=== PATIENT | female | born 1985 | race Caucasian/White ===

== ENCOUNTER 2018-12-13 18:18 | Emergency (ER) | payer OTHER ==
[2018-12-13 18:32] VITALS: BP 138/90; PULSE 90; TEMP 99; BMI 35.7
--- NOTE | 2018-12-13 18:33 | PDOC ---
Rapid Medical Evaluation Chief Complaint: Injury Medical Evaluation: Allergies Allergy/AdvReac Type Severity Reaction Status Date / Time Penicillins AdvReac Verified 12/13/18 18:29 12/13/18 18:31 I have performed a brief in-person evaluation of this patient. The patient presents with a chief complaint of:right index finger Pertinent physical exam findings: swelling and pain to finger- non fluctuant I have ordered the following: nothing The patient will proceed to the ED for further evaluation. Discharge Disposition - Diagnosis Finger pain, right - Referrals - Patient Instructions - Post Discharge Activity
--- NOTE | 2018-12-13 19:36 | PDOC ---
History of Present Illness - General Chief Complaint: Injury Stated Complaint: SWOLLEN FINGER Time Seen by Provider: 12/13/18 19:15 History Source: Patient - History of Present Illness Initial Comments: 12/13/18 19:31 33-year-old female complaining of right index finger pain proximal to the right fingernail. Patient reports that she cut her nails really short pain started yesterday. Denies fevers/chills. Patient has a history of [id number] diabetes. Past History - Past Medical History Allergies/Adverse Reactions: Allergies Allergy/AdvReac Type Severity Reaction Status Date / Time Penicillins AdvReac Verified 12/13/18 18:29 Home Medications: Ambulatory Orders Clindamycin [Cleocin -] 300 mg PO Q6HPO #28 capsule 12/13/18 COPD: No Diabetes: Yes - Immunization History Immunization Up to Date: Yes - Suicide/Smoking/Psychosocial Hx Smoking History: Never smoked Have you smoked in the past 12 months: No Information on smoking cessation initiated: No Hx Alcohol Use: No Drug/Substance Use Hx: No Review of Systems - Review of Systems Able to Perform ROS?: Yes Is the patient limited Marshallese proficient: No Constitutional: No: Symptoms Reported, See HPI, Chills, Diaphoresis, Fever, Loss of Appetite, Malaise, Night Sweats, Weakness, Weight Stable, Unintentional Wgt. Loss, Unexplained wgt Loss, Other Integumentary: Yes: Other (finger pain) *Physical Exam - Vital Signs Last Vital Signs Temp Pulse Resp BP Pulse Ox 99.0 F 90 16 138/90 100 12/13/18 18:29 12/13/18 18:29 12/13/18 18:29 12/13/18 18:29 12/13/18 18:29 - Physical Exam General Appearance: Yes: Appropriately Dressed Extremity: positive: Other (right index finger erythema at the tip and swelling , no swelling no ROM. ) Integumentary: positive: Normal Color, Dry, Warm Neurologic: positive: Fully Oriented, Alert, Normal Mood/Affect Moderate Sedation - Procedure Monitoring Vital Signs: Procedure Monitoring Vital Signs Temperature 99.0 F 12/13/18 18:29 Pulse Rate 90 12/13/18 18:29 Respiratory Rate 16 12/13/18 18:29 Blood Pressure 138/90 12/13/18 18:29 O2 Sat by Pulse Oximetry (%) 100 02/07/19 18:29 Medical Decision Making - Medical Decision Making 12/13/18 19:36 finger cellulitis P: no abscess *DC/Admit/Observation/Transfer Diagnosis at time of Disposition: Finger pain, right, Paronychia of finger of right hand - Discharge Dispostion Disposition: HOME - Prescriptions Prescriptions: Clindamycin [Cleocin -] 300 mg PO Q6HPO #28 capsule - Referrals - Patient Instructions Printed Discharge Instructions: DI for Wound Infection Additional Instructions: soak your finger in warm salty water. take clindamycin as prescribed follow up with your doctor in 2 days for wound check, Additional Instructions: * Please call your personal physician to report your Emergency Department visit and to report your progress, if any. * If there is no improvement in symptoms in 2 days call your physician. * Return to the Emergency Department for any worsening symptoms. - Post Discharge Activity Forms/Work/School Notes: Back to Work
== END 2018-12-13 20:32 | disposition home or self-care (01) ==
LOC: JERFT 18:18
DX: L03.011 Cellulitis of right finger (principal)
CPT/HCPCS: 99281-25

== ENCOUNTER 2018-12-15 16:33 | Emergency (ER) | payer OTHER ==
[2018-12-15 16:41] VITALS: BP 134/77; PULSE 107; TEMP 97.7; BMI 35.7
--- NOTE | 2018-12-15 17:41 | PDOC ---
History of Present Illness - General Chief Complaint: Redness To Affected Area Stated Complaint: PAIN IN LEFT LEFT HAND AND FINGERS Time Seen by Provider: 12/15/18 17:21 - History of Present Illness Initial Comments: 12/15/18 17:38 33-year-old female presents for evaluation of ongoing right finger pain unrelieved with antibiotics. She has no systemic symptoms. Past History - Past Medical History Allergies/Adverse Reactions: Allergies Allergy/AdvReac Type Severity Reaction Status Date / Time Penicillins AdvReac Verified 12/15/18 16:41 Home Medications: Ambulatory Orders NK [No Known Home Medication] 12/15/18 COPD: No Diabetes: Yes - Immunization History Immunization Up to Date: Yes - Suicide/Smoking/Psychosocial Hx Smoking History: Never smoked Have you smoked in the past 12 months: No Hx Alcohol Use: No Drug/Substance Use Hx: No Review of Systems - Review of Systems Integumentary: Yes: See HPI *Physical Exam - Vital Signs Last Vital Signs Temp Pulse Resp BP Pulse Ox 97.7 F 107 H 20 134/77 99 12/15/18 16:38 12/15/18 16:38 12/15/18 16:38 12/15/18 16:38 12/15/18 16:38 - Physical Exam Comments: 12/15/18 17:38 There is a tender erythematous fluctuant area adjacent to the right index finger nail fold on the radial aspect of the finger. There are no gross sensorimotor deficits. Moderate Sedation - Procedure Monitoring Vital Signs: Procedure Monitoring Vital Signs Temperature 97.7 F 12/15/18 16:38 Pulse Rate 107 H 12/15/18 16:38 Respiratory Rate 20 12/15/18 16:38 Blood Pressure 134/77 12/15/18 16:38 O2 Sat by Pulse Oximetry (%) 99 12/15/18 16:38 Medical Decision Making - Medical Decision Making 12/15/18 17:38 Under aseptic technique a digital block was introduced into the right index finger. I used 6 mL of 1% lidocaine without epinephrine. After appropriate anesthesia the finger was sterilely prepped a small incision was made on the radial aspect of the right index finger adjacent to the nail fold. Material was expressed a dry sterile dressing was placed patient tolerated this well. *DC/Admit/Observation/Transfer Diagnosis at time of Disposition: Paronychia of finger of right hand, Abscess - Discharge Dispostion Disposition: HOME Condition at time of disposition: Stable Decision to Admit order: No - Referrals Referrals: Jensen Aguilar MD [Staff Physician] - - Patient Instructions Printed Discharge Instructions: DI for Incision and Drainage of a Skin Abscess , Paronychia, DI for Paronychia Additional Instructions: Continue to take the clindamycin as directed. Return to the emergency room should you have any further issues. Follow-up with hand surgery in 2-3 days for further evaluation and treatment options. Remove the dressing in 48 hours and leave the area open to air. May wash her hair at that point with soap and water if there is any drainage may cover with a dry sterile dressing or Band-Aid. Tylenol Motrin as directed for pain. - Post Discharge Activity
== END 2018-12-15 17:43 | disposition home or self-care (01) ==
LOC: JERFT 16:33
PROC: 0J9J0ZZ Drainage of Right Hand Subcutaneous Tissue and Fascia, Open Approach (ICD-10-PCS; principal; 2018-12-15)
DX: L03.011 Cellulitis of right finger (principal)
CPT/HCPCS: 99281-25

== ENCOUNTER 2019-12-08 02:00 | Emergency (ER) | payer SELFPAY ==
--- NOTE | 2019-12-08 02:41 | PDOC ---
History of Present Illness - General Chief Complaint: Ingrown toenail Stated Complaint: INGROWN NAIL Time Seen by Provider: 12/08/19 02:37 History Source: Patient - History of Present Illness Initial Comments: 12/08/19 03:37 34 y/o female with a PMHx of NIDDM here today for R finger pain. States the pain started three days previous and has gotten worse. No fevers/chills. No history of similar pain. Denies any high pressure injection or injury. Past History - Past Medical History Allergies/Adverse Reactions: Allergies Allergy/AdvReac Type Severity Reaction Status Date / Time Penicillins AdvReac Verified 12/08/19 02:06 Home Medications: Ambulatory Orders Acetaminophen [Tylenol] 650 mg PO PRN 12/08/19 Clindamycin [Cleocin -] 300 mg PO Q6HPO #28 capsule 12/08/19 Ibuprofen [Motrin -] 600 mg PO TID #21 tablet 12/08/19 COPD: No Diabetes: Yes - Immunization History Immunization Up to Date: Yes - Psycho Social/Smoking Cessation Hx Smoking History: Never smoked Have you smoked in the past 12 months: No Hx Alcohol Use: No Drug/Substance Use Hx: No Review of Systems - Review of Systems Constitutional: No: Chills, Fever HEENTM: No: Blurred Vision, Double Vision Respiratory: No: Cough, Shortness of Breath Cardiac (ROS): No: Chest Pain, Lightheadedness, Palpitations ABD/GI: No: Constipated, Diarrhea, Nausea, Vomiting *Physical Exam - Physical Exam 12/08/19 03:38 Triage VS reviewed R fifth digit w/palmar edema - c/w felon; 2+ DP pulse B/L CV: S1, S2 Respiratory: CLTA B/L Abdomen: soft, non-tender, (+) bowel sounds Neuro: A&O x3, CN II-XII intact Procedures - Incision and Drainage I&D Site: Right: Other Anesthesia: 2% Lidocaine Blade Size: 11 Medical Decision Making - Medical Decision Making 12/08/19 02:41 34 y/o female with R 5th digit felon. No h/o high pressure injury. I&D by me w/some purulent discharge on palmar side; repeat procedure by attending. Wound culture pending Patient given OTD of Clindamycin and discharged home with 7 day antibiotic course. Discharge - Discharge Information Problems reviewed: Yes Clinical Impression/Diagnosis: Finger pain, right Condition: Good Disposition: HOME - Admission No - Additional Discharge Information Prescriptions: Clindamycin [Cleocin -] 300 mg PO Q6HPO #28 capsule Ibuprofen [Motrin -] 600 mg PO TID #21 tablet - Follow up/Referral Referrals: Miles Sethi [Primary Care Provider] - - Patient Discharge Instructions Patient Printed Discharge Instructions: ARYAN Dorantes Additional Instructions: We have sent a prescription for an antibiotic to your pharmacy. Please complete the entire antibiotic course. You can take Tylenol (650 mg) alternating with Motrin (400 mg) every 6 hours for your pain. Return to the Emergency Department for any new/worsening/concerning symptoms. - Post Discharge Activity
[2019-12-08] MEDS ORDERED: LIDOCAINE HCL 2% (50ML VIAL) INF ONE (02:42)
[2019-12-08] MEDS ORDERED: LIDOCAINE HCL 2% (20ML MULTI-DOSE VIAL) ONE (02:43)
--- NOTE | 2019-12-08 03:04 | PDOC ---
Attending Attestation - Resident Resident Name: Simran Acevedo - ED Attending Attestation I have performed the following: I have examined & evaluated the patient, The case was reviewed & discussed with the resident, I agree w/resident's findings & plan - HPI HPI: 12/09/19 00:24 34 y/o female with a PMHx of NIDDM here today for R finger pain. States the pain started three days previous and has gotten worse. No fevers/chills. No history of similar pain. Denies any high pressure injection or injury. - Physicial Exam PE: 12/09/19 00:24 Normal exam Pt has a paronychia on her left 5th finger - Medical Decision Making 12/08/19 03:52 paronychia was drained; pus removed 0.3ml pt tolerated procedure well. Pt will be given clinda as she is allergic to PCN. She will follow with her PMD she understands to return for infection analgesics givem
[2019-12-08] MEDS ORDERED: CLINDAMYCIN HCL 300 MG CAPSULE PO ONE (03:16)
[2019-12-08] MEDS ORDERED: IBUPROFEN 600 MG TABLET (FP) PO ONE ×2 (03:17→03:31)
[2019-12-08] MEDS ORDERED: CLINDAMYCIN HCL 150 MG CAPSULE (FP) ONE (03:31)
== END 2019-12-08 03:47 | disposition home or self-care (01) ==
LOC: JER 02:00
PROC: 0J9J0ZZ Drainage of Right Hand Subcutaneous Tissue and Fascia, Open Approach (ICD-10-PCS; principal; 2019-12-08)
PROC: 3E013BZ Introduction of Anesthetic Agent into Subcutaneous Tissue, Percutaneous Approach (ICD-10-PCS; 2019-12-08)
DX: L03.011 Cellulitis of right finger (principal); Z88.0 Allergy status to penicillin
CPT/HCPCS: 87070; 87186; 87205; 99282-25

== ENCOUNTER 2020-01-09 00:41 | Emergency (ER) | payer SELFPAY ==
[2020-01-09 00:50] VITALS: BP 153/86; PULSE 98; TEMP 97.4; BMI 32.9
--- NOTE | 2020-01-09 01:39 | PDOC ---
History of Present Illness - General Chief Complaint: Ingrown toenail Stated Complaint: LEFT FINGER PAIN Time Seen by Provider: 01/09/20 01:38 - History of Present Illness Initial Comments: 01/09/20 01:38 34 yo F with h/o NIDDM who p/w left fifth digit pain at MCP. Patient reports one day of severe, worsening, pinky pain x 1 day. Pain aggravated with touch and movement of pinky. Denies trauma to digit. Recent paronychia drainage of involved digit (12/08/19). Reports visit to [facility] for diffuse hand swelling x 1-2 weeks ago. Patient states that she has been on Clindamycin TID daily, with 5 days left. Has missed doses of Clindamycin. Patient denies LOERA, vision change, palpitations, cough, wheezing, orthopena, PND , leg swelling/pain, N/V, F,C, CP, SOB, urinary complaints, hematuria, BPR, abdominal pain, diarrhea, constipation, lightheadedness, weakness, sensory changes. PMHx: as noted above ROS: as noted SHx: Denies Etoh, IVDA, tobacco use Allergies: PCN Past History - Past Medical History Allergies/Adverse Reactions: Allergies Allergy/AdvReac Type Severity Reaction Status Date / Time Penicillins AdvReac Verified 01/09/20 00:48 Home Medications: Ambulatory Orders Acetaminophen [Tylenol] 650 mg PO PRN 12/08/19 Clindamycin [Cleocin -] 300 mg PO Q6HPO #28 capsule 12/08/19 Ibuprofen [Motrin -] 600 mg PO TID #21 tablet 12/08/19 Ibuprofen [Motrin -] 600 mg PO TID #21 tablet 01/09/20 COPD: No Diabetes: Yes - Immunization History Immunization Up to Date: Yes - Psycho Social/Smoking Cessation Hx Smoking History: Current every day smoker Have you smoked in the past 12 months: No Number of Cigarettes Smoked Daily: 6 Information on smoking cessation initiated: Yes Hx Alcohol Use: No Drug/Substance Use Hx: No Review of Systems - Review of Systems Comments:: 01/09/20 01:39 GENERAL/CONSTITUTIONAL: No fever or chills. No weakness. HEAD, EYES, EARS, NOSE AND THROAT: No change in vision. No ear pain or discharge. No sore throat. CARDIOVASCULAR: No chest pain or shortness of breath RESPIRATORY: No cough, wheezing, or hemoptysis. GASTROINTESTINAL: No nausea, vomiting, diarrhea or constipation. GENITOURINARY: No dysuria, frequency, or change in urination. MUSCULOSKELETAL: + Left fifth digit pain. No joint or muscle swelling or pain. No neck or back pain. SKIN: No rash NEUROLOGIC: No headache, vertigo, loss of consciousness, or change in strength/ sensation. ENDOCRINE: No increased thirst. No abnormal weight change HEMATOLOGIC/LYMPHATIC: No anemia, easy bleeding, or history of blood clots. ALLERGIC/IMMUNOLOGIC: No hives or skin allergy. *Physical Exam - Vital Signs Last Vital Signs Temp Pulse Resp BP Pulse Ox 97.4 F L 98 H 18 153/86 100 01/09/20 00:44 01/09/20 00:44 01/09/20 00:44 01/09/20 00:44 01/09/20 00:44 - Physical Exam 01/09/20 01:39 GENERAL: Awake, alert, and fully oriented, in no acute distress HEAD: No signs of trauma, normocephalic, atraumatic EYES: PERRLA, EOMI, sclera anicteric, conjunctiva clear ENT: Hearing grossly normal, nares patent, oropharynx clear without exudates. Moist mucosa NECK: Normal ROM, supple, no lymphadenopathy, JVD, or masses LUNGS: No distress, speaks full sentences, clear to auscultation bilaterally HEART: Regular rate and rhythm, normal S1 and S2, no murmurs, rubs or gallops, peripheral pulses normal and equal bilaterally. ABDOMEN: Soft, nontender, normoactive bowel sounds. No guarding, no rebound. No masses L HAND: + Left fifth digit ttp at dorsal MCP. Absent fluctuance, erythema. 5/5 strength throughout involved digit. Pain with passive and active flexion of digit. Absent laceration or foreign body. EXTREMITIES : Normal inspection, Normal range of motion, no edema. No clubbing or cyanosis. 2+ peripheral pulses throughout. NEUROLOGICAL: Cranial nerves II through XII grossly intact. Normal speech, normal gait, no focal sensorimotor deficits SKIN: Warm, Dry, normal turgor, no rashes or lesions noted Medical Decision Making - Medical Decision Making 01/09/20 01:55 34 yo F with h/o NIDDM who p/w left fifth digit pain at MCP. Vitals wnl, AF, A& Ox3. Physical exam notable for + Left fifth digit ttp at dorsal MCP. Absent fluctuance, erythema. 5/5 strength throughout involved digit. Pain with passive and active flexion of digit. Absent laceration or foreign body. Absent tenderness along flexor sheath, fusiform swelling, or flexed posture of digit. Absent evidence of infection. Will provide oral analgesia and reassess. ED Course: Tylenol 600 Motrin sent to pharmacy Stable for d/c with return precautions advised to f/u hand surgery Discharge - Discharge Information Problems reviewed: Yes Clinical Impression/Diagnosis: Finger pain, left Condition: Stable Disposition: HOME - Admission No - Additional Discharge Information Prescriptions: Ibuprofen [Motrin -] 600 mg PO TID #21 tablet - Follow up/Referral Referrals: Rick Jimenez MD [Staff Physician] - - Patient Discharge Instructions Patient Printed Discharge Instructions: DI for Finger Sprain Additional Instructions: Please return to the emergency department with any new or worsening symptoms or concerns. Please follow up with hand surgery and your primary care physician within 72 hours. Can take Motrin 600 mg every 6-8 hours as needed for pain. - Post Discharge Activity
[2020-01-09] MEDS ORDERED: ACETAMINOPHEN 325 MG TABLET (FP) PO ONE (01:48)
--- NOTE | 2020-01-09 02:03 | PDOC ---
Attending Attestation - Resident Resident Name: Mundo Ozunason - ED Attending Attestation I have performed the following: I have examined & evaluated the patient, The case was reviewed & discussed with the resident, I agree w/resident's findings & plan, Exceptions are as noted - HPI HPI: 01/09/20 02:00 34 yo F h/o recent paronhychia s/p drainage x 2 , on clindamycin, states she missed a few doses of her clindamycin, here for pinkly pain. pt denies swelling. overall swelling has improved. was initially swollen several days ago. no f/c no new trauma. no other complaints. does not have hand follow up currently. left pinky pain. - Physicial Exam PE: 01/09/20 02:01 awake alert lungs clear bilat heart rrr no mrg left hand minimal tenderness over left pinky . no noted erythema. no swelling. no warmth. no recurrent paronychia. - Medical Decision Making 01/09/20 02:02 34 yo F with h/o paronychia on clinda with pinky pain. no signs of current infection on exam. told to keep taking clindamycin. given prescription for motrin 600 mg . and hand followup . also told to return for recurrent swelling erythema or any other concerns.
[2020-01-09] MEDS ORDERED: ACETAMINOPHEN 325 MG TABLET (FP) ONE (02:04)
== END 2020-01-09 02:30 | disposition home or self-care (01) ==
LOC: JER 00:41
DX: M79.645 Pain in left finger(s) (principal); E11.9 Type 2 diabetes mellitus without complications; Z79.84 Long term (current) use of oral hypoglycemic drugs; Z87.2 Personal history of diseases of the skin and subcutaneous tissue; Z88.0 Allergy status to penicillin
CPT/HCPCS: 99282-25

== ENCOUNTER 2021-05-11 13:53 | Emergency (ER) | payer OTHER ==
[2021-05-11 14:17] VITALS: BP 119/82; PULSE 93; TEMP 99.1; BMI 33.9
[2021-05-11] MEDS ORDERED: IBUPROFEN 600 MG TABLET (FP) PO ONE ×2 (15:12→15:15)
[2021-05-11] MEDS ORDERED: DEXAMETHASONE LIQUID 0.5 MG/5 ML PO ONE (15:12)
[2021-05-11] MEDS ORDERED: DEXAMETHASONE SOD PHOSPHATE 10 MG/1 ML VIAL ONE (15:15)
== END 2021-05-11 15:24 | disposition home or self-care (01) ==
LOC: JERFT 13:53
DX: J02.9 Acute pharyngitis, unspecified (principal); K02.9 Dental caries, unspecified
CPT/HCPCS: 87880; 99283-25

== ENCOUNTER 2021-05-14 11:24 | Emergency (ER) | payer OTHER ==
[2021-05-14 11:33] VITALS: BP 134/89; PULSE 86; TEMP 98.2; BMI 33.7
[2021-05-14] MEDS ORDERED: ACETAMINOPHEN 500 MG TABLET (FP) PO ONE (12:09)
[2021-05-14] MEDS ORDERED: ACETAMINOPHEN 500 MG TABLET (FP) ONE (12:29)
== END 2021-05-14 12:37 | disposition home or self-care (01) ==
LOC: JERFT 11:24
DX: J02.9 Acute pharyngitis, unspecified (principal)
CPT/HCPCS: 99283-25

== ENCOUNTER 2021-05-26 01:26 | Emergency (ER) | payer OTHER ==
[2021-05-26 02:07] VITALS: BMI 25.0
[2021-05-26 03:21] LABS: BASO % 0.9 % (0-2.0); EOS % 0.6 % (0-4.5); HEMATOCRIT 40.2 % (32.4-45.2); HEMOGLOBIN 13.5 GM/dL (10.7-15.3); LYMPH % 21.5 % (8-40); MCH 29.5 pg (25.7-33.7); MCHC 33.5 g/dl (32.0-36.0); MEAN CELL VOLUME 87.9 fl (80-96); MEAN PLT VOLUME 7.7 fl (7.5-11.1); MONO % 7.9 % (3.8-10.2); NEUT % 69.1 % (42.8-82.8); PLATELET COUNT 426 10^3/uL (134-434); RBC 4.57 M/mm3 (3.60-5.2); RDW 13.1 % (11.6-15.6); WHITE BLOOD COUNT 14.2 K/mm3 (4.0-10.0)
[2021-05-26 03:42] LABS: ALBUMIN 3.4 g/dl (3.4-5.0); BLOOD UREA NITROGEN 15.3 mg/dL (7-18); CALCIUM 8.8 mg/dL (8.5-10.1)
[2021-05-26 03:46] LABS: BILIRUBIN,TOTAL 0.3 mg/dL (0.2-1); CREATININE 0.7 mg/dL (0.55-1.3)
[2021-05-26 07:02] VITALS: TEMP 98
[2021-05-26 07:59] LABS: HIV INTERPRETATION NEGATIVE (NEGATIVE)
[2021-05-26 09:11] VITALS: BP 126/89; PULSE 88
== END 2021-05-26 10:02 | disposition short-term general hospital (02) ==
LOC: JER 01:26
DX: K13.79 Other lesions of oral mucosa (principal); C05.1 Malignant neoplasm of soft palate
CPT/HCPCS: 36415; 70450-TC; 70486-TC; 70492-TC; 80053; 85025; 87070; 87389; 87880; 99285-25; C9803; Q9967; U0003; U0005